=== PATIENT | male | born 1955 | race Caucasian/White ===

== ENCOUNTER → 2020-09-06 | Outpatient (CLI) | payer OTHER ==
[~2020-09-06] MED LIST: BIAXIN; CIPROFLOXACIN500 M1 PO; CLORAZEPATE DI7.5 M1; FLAGYL; FLEXERIL PO; GERD MED; IBUPROFEN 200200 M1 PO; NAPROSYN375 MG PO; NAPROXEN 375 M375 M1 PO; NEXIUM; NEXIUM 40 MG CA40 M1 PO; NORCO 5-325 TA1 EACH PO; OMEPRAZOLE; PERCOCET 5-3251 EACH PO; PREDNISONE 10 M10 MG PO; PRILOSEC40 MG PO; [UNRECOGNIZED DRUG - CODE] PO; [UNRECOGNIZED DRUG - OTHER]
[2020-09-06 09:56] LABS: ABSOLUTE BASOPHILS 0.1 thou/uL (0.0-0.2); ABSOLUTE EOSINOPHILS 0.3 thou/uL (0.0-0.7); ABSOLUTE LYMPHOCYTES 2.6 thou/uL (0.8-5.3); ABSOLUTE MONOCYTES 0.5 thou/uL (0.0-1.2); ABSOLUTE NEUTROPHILS 4.7 thou/uL (1.6-8.1); BASOPHILS 1.4 %; EOSINOPHILS 3.5 %; HEMATOCRIT 49.3 % (42.0-52.0); HEMOGLOBIN 16.9 gm/dL (14.0-18.0); LYMPHOCYTES 31.8 %; MCH 29.6 pg (26.0-34.0); MCHC 34.3 g/dL (28.0-37.0); MCV 86.3 fL (80.0-100.0); MONOCYTES 5.9 %; NUCLEATED RBCS 0 /100WBC; PLATELET COUNT* 198 thou/uL (150-400); POLYS 57.4 %; RBC 5.71 mil/uL (4.50-6.00); RDW-CV 12.6 % (10.5-14.5); WBC 8.1 thou/uL (4.0-11.0)
[2020-09-06 10:15] LABS: ALBUMIN 4.3 g/dL (3.4-5.0); ALKALINE PHOSPHATASE 95 U/L (46-116); ANION GAP 9 mmol/L (7-16); BUN 17 mg/dL (7-18); CALCIUM 9.7 mg/dL (8.5-10.1); CHLORIDE 103 mmol/L (98-107); CHOLESTEROL 233 mg/dL (<200); CO2 28 mmol/L (21-32); CREATININE 1.1 mg/dL (0.6-1.3); GLUCOSE 132 mg/dL (70-99); HDL CHOLESTEROL 36 mg/dL (>40); POTASSIUM 4.1 mmol/L (3.5-5.1); SGOT 27 U/L (15-37); SGPT 102 U/L (30-65); SODIUM 140 mmol/L (136-145); TC:HDL 6.5 Ratio (Not establshd); TOTAL BILIRUBIN 0.4 mg/dL (<0.1-1.0); TRIGLYCERIDE 475 mg/dL (<150); VLDL 95 mg/dL (<40)
[2020-09-06 10:16] LABS: SERUM ASSESSMENT Clear
[2020-09-07 02:06] LABS: GLYCOHEMOGLOBIN (HGB A1C) 5.7 % (4.8-5.6)
== END ==
LOC: M.LAB 09:25
PROVIDERS: ATTEND Internal Medicine
DX: Z00.00 Encounter for general adult medical examination without abnormal findings (principal); Z12.5 Encounter for screening for malignant neoplasm of prostate; I10 Essential (primary) hypertension; R73.03 Prediabetes; E55.9 Vitamin D deficiency, unspecified